=== PATIENT | male | born 1970 | race Caucasian/White ===

== ENCOUNTER 2019-10-31 20:52 | Emergency (ER) | payer BC, SELFPAY ==
[2019-10-31 21:56] VITALS: BP 172/99; PULSE 97; RESP 18; TEMP 37.7; O2SAT 94; BMI 44.6
[2019-10-31 23:54] LABS: Influenza A by IFA Positive (Negative)
[2019-10-31 23:55] LABS: Influenza B by IFA Negative (Negative)
--- NOTE | 2019-11-01 00:23 | W.ED.URI ---
HPI - URI/Sore Throat General: Chief Complaint: Upper Respiratory Infection Stated Complaint: flu like symptoms Time Seen by Provider: 11/01/19 00:16 Source: patient Mode of arrival: ambulatory Limitations: no limitations History of Present Illness: HPI Narrative: flu symptoms since yesterday Associated symptoms: Reports fever(s) Review of Systems General: Reports: 10 or more systems reviewed and unremarkable except in HPI and below Const: Reports: fever and body aches Resp: Reports: productive cough PFSH ED PFSH: Social History Smoking and tobacco status: never smoked Physical Exam Const: COMMON NORMALS: no apparent distress and oriented x3 GENERAL APPEARANCE: cooperative HENMT: COMMON NORMALS: normocephalic, external ears normal, EAC's normal, TM's normal bilaterally and external nose normal HEAD & SCALP: normal to inspection and normocephalic FACE & SINUS: normal facial exam NOSE: external nose normal GENERAL EAR: hearing not grossly impaired EXTERNAL EAR: Yes external ears normal EXTERNAL AUDITORY CANAL: EAC's normal TYMPANIC MEMBRANE: TM's normal bilaterally MOUTH: oral and palatal mucosa normal THROAT: posterior oropharynx abnormal erythema Eye: COMMON NORMALS: PERRL and EOMs intact bilaterally PUPIL: Yes PERRL Neck/C-Spine: COMMON NORMALS: full ROM and no lymphadenopathy Lymph: LYMPHATIC: no lymphedema noted Chest: COMMONS NORMALS: inspection of chest normal and palpation of chest normal Resp: COMMON NORMALS: normal respiratory effort and clear to auscultation bilaterally AUSCULTATION: clear to auscultation bilaterally Cardio: COMMON NORMALS: regular rate and regular rhythm RATE: regular rate RHYTHM: regular rhythm GI: COMMON NORMALS: normal to inspection, nondistended, normoactive bowel sounds and non-tender : COMMON NORMALS: Yes no CVA tenderness BLADDER/KIDNEY EXAM: Yes no CVA tenderness Back/Pelvis: COMMON NORMALS: no CVA tenderness and thoracic and lumbar spine normal to inspection Extremity: COMMON NORMALS: normal to inspection GENERAL: No edema Neuro: COMMON NORMALS: oriented x3, moves all extremities and no focal motor deficits Psych: COMMON NORMALS: mental status grossly normal and cooperative Skin: COMMON NORMALS: no rashes or lesions noted GENERAL SKIN EXAM: no rashes or lesions noted Course Vital Signs: Vital signs: Vital Signs Temperature 100 F H 10/31/19 21:56 Pulse Rate 97 10/31/19 21:56 Respiratory Rate 18 10/31/19 21:56 Blood Pressure 172/99 10/31/19 21:56 Pulse Oximetry 94 10/31/19 21:56 MDM - URI/Sore Throat MDM Narrative: Medical decision making narrative: Patient comes in with fever and cough since yesterday. Patient appears unwell. Patient appears in no acute distress. Posterior pharynx is erythematous, nasal mucosal swelling and drainage, lungs are clear to auscultation. Vital signs are normal except for some mild elevation in blood pressure at 172/99 and a temperature of 100. Differential diagnosis includes viral syndrome, upper respiratory infection, influenza. Influenza was positive for type A. Encourage fluids rest and medications as directed. Patient reports understanding. Lab Data: Labs: Lab Results 10/31/19 Range/Units 23:33 Influenza Type A A g Positive H (Negative) POC Influenza B Ag Negative (Negative) Discharge Plan Discharge Patient Disposition: Home, Self-Care Clinical Impression: Influenza Condition: Stable Prescriptions: New oseltamivir 75 mg capsule 75 mg PO BID 5 Days Qty: 10 RF: 0 No Action metoprolol barlow-hydrochlorothiaz 100-12.5 mg Tablet Extended Release 24 Hr 1 tab PO DAILY RF: 0 Discharge Orders: Discharge Order (Routine); Ordered 11/01/19 Ordered By: Mark Figueroa Referrals: Tere Ray MD [Family Provider] - Discharge Diet: Usual diet Discharge Activity: Increase activity as tolerated Patient Instructions: Influenza (ED) Activity Restrictions/Additional Instructions: Drink plenty of fluids Acetaminophen and ibuprofen for pain and fever Medications as directed Follow-up with primary care in one week as needed Stand Alone Forms: Work/School Release Coding 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
[2019-11-01] MEDS: oseltamivir phosphate 75 mg Capsule PO (00:34)
--- NOTE | 2019-11-01 00:38 | W.ED.URI ---
HPI - URI/Sore Throat General: Chief Complaint: Upper Respiratory Infection Stated Complaint: flu like symptoms Time Seen by Provider: 11/01/19 00:16 Source: patient Mode of arrival: ambulatory Limitations: no limitations History of Present Illness: HPI Narrative: Patient comes in today with complaints of cough and congestion and fever starting yesterday. Patient appears unwell. Patient appears in no pain. MD elicited complaint: fever and cough Associated symptoms: Reports fever(s) Review of Systems General: Reports: 10 or more systems reviewed and unremarkable except in HPI and below Const: Reports: fever Resp: Reports: non-productive cough PFSH ED PFSH: Social History Smoking and tobacco status: never smoked Physical Exam Const: COMMON NORMALS: no apparent distress and oriented x3 GENERAL APPEARANCE: cooperative HENMT: COMMON NORMALS: normocephalic, external ears normal, EAC's normal, TM's normal bilaterally and external nose normal HEAD & SCALP: normal to inspection and normocephalic FACE & SINUS: normal facial exam NOSE: external nose normal GENERAL EAR: hearing not grossly impaired EXTERNAL EAR: Yes external ears normal EXTERNAL AUDITORY CANAL: EAC's normal TYMPANIC MEMBRANE: TM's normal bilaterally MOUTH: oral and palatal mucosa normal THROAT: posterior oropharynx abnormal erythema Eye: COMMON NORMALS: PERRL and EOMs intact bilaterally PUPIL: Yes PERRL Neck/C-Spine: COMMON NORMALS: full ROM and no lymphadenopathy Lymph: LYMPHATIC: no lymphedema noted Chest: COMMONS NORMALS: inspection of chest normal and palpation of chest normal Resp: COMMON NORMALS: normal respiratory effort and clear to auscultation bilaterally AUSCULTATION: clear to auscultation bilaterally Cardio: COMMON NORMALS: regular rate and regular rhythm RATE: regular rate RHYTHM: regular rhythm GI: COMMON NORMALS: normal to inspection, nondistended, normoactive bowel sounds and non-tender : COMMON NORMALS: Yes no CVA tenderness BLADDER/KIDNEY EXAM: Yes no CVA tenderness Back/Pelvis: COMMON NORMALS: no CVA tenderness and thoracic and lumbar spine normal to inspection Extremity: COMMON NORMALS: normal to inspection GENERAL: No edema Neuro: COMMON NORMALS: oriented x3, moves all extremities and no focal motor deficits Psych: COMMON NORMALS: mental status grossly normal and cooperative Skin: COMMON NORMALS: no rashes or lesions noted GENERAL SKIN EXAM: no rashes or lesions noted Course Vital Signs: Vital signs: Vital Signs Temperature 100 F H 10/31/19 21:56 Pulse Rate 97 10/31/19 21:56 Respiratory Rate 18 10/31/19 21:56 Blood Pressure 172/99 10/31/19 21:56 Pulse Oximetry 94 10/31/19 21:56 MDM - URI/Sore Throat MDM Narrative: Medical decision making narrative: Patient comes in today for illness since yesterday. Patient unwell. Exam notes respirations are even lungs are clear to auscultation. Posterior pharynx is erythematous. Skin is warm and dry. Differential diagnosis includes influenza, upper respiratory infection, viral syndrome. Flu test was positive for type A. Reviewed exam with patient with recommendations for treatment and follow-up. Patient reports understanding. Lab Data: Labs: Lab Results 10/31/19 Range/Units 23:33 Influenza Type A A g Positive H (Negative) POC Influenza B Ag Negative (Negative) Discharge Plan Discharge Patient Disposition: Home, Self-Care Clinical Impression: Influenza Condition: Stable Prescriptions: New oseltamivir 75 mg capsule 75 mg PO BID 5 Days Qty: 10 RF: 0 No Action metoprolol barlow-hydrochlorothiaz 100-12.5 mg Tablet Extended Release 24 Hr 1 tab PO DAILY RF: 0 Discharge Orders: Discharge Order (Routine); Ordered 11/01/19 Ordered By: Mark Figueroa Referrals: Tere Ray MD [Family Provider] - Discharge Diet: Usual diet Discharge Activity: Increase activity as tolerated Patient Instructions: Influenza (ED) Activity Restrictions/Additional Instructions: Drink plenty of fluids Acetaminophen and ibuprofen for pain and fever Medications as directed Follow-up with primary care in one week as needed Stand Alone Forms: Work/School Release Coding 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
[2019-11-01 00:46] VITALS: BP 173/103; PULSE 88; RESP 16; TEMP 37.4; O2SAT 96
== END 2019-11-01 00:55 | disposition home or self-care (01) ==
PROVIDERS: Emergency Medicine; Emergency Provider Nurse Practitioner Family; Family Provider Internal Medicine
DX: J11.1 Influenza due to unidentified influenza virus with other respiratory manifestations (principal)
CPT/HCPCS: 87804; 99281; 99283

== ENCOUNTER 2020-03-06 08:02 | Outpatient (CLI) | payer BC, SELFPAY ==
--- NOTE | 2020-03-06 08:38 | CT_ITS ---
WS: [id number] CT NECK TECHNIQUE: Contrast-enhanced CT of the neck with coronal and sagittal reformatted images. CLINICAL INFORMATION: BENIGN NEOPLASM OF AORTIC BODY AND OTHER COMPARISON: Multiple prior neck CTs February 9019, March 01, 2018, March 09, 2017, June 16, 2016, Mayobe 2014 DLP: 1997.[address] scans at [facility] use at least one of these dose optimization techniques: automat ed exposure control; mA and/or kV adjustment per patient size (includes targeted exams where dose is matched to clinical indication); or iterative reconstruction. FINDINGS: Comparison multiple prior CT scans. Again seen are multiple paragangliomas stable since the prior examination . 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 This is not significantly changed since the prior examination. This continues to involve the posterior lateral margin of the clivus and right occipital condyle unch anged. Associated involvement of the petrous portion right internal carotid unchanged. 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 This is anterior and lateral to the internal carotid ar juan and anterior to the jugular vein. Stable bilateral carotid body paragangliomas left greater than right. The right paraganglioma measure s 2.4 x 1.9 x 2.8 cm. Left paraganglioma measures 2.0 x 3.1 x 8.6 CM. Additional enhancing lesion in the left thyroid bed measuring 2.4 x 2.0 x 3.7 CM. This is stable. Sta ble fatty atrophy involving the right lateral aspect of the tongue with prolapse into the right xiao culae is unchanged. Normal epiglottis. Supraglottic airway remains patent. Normal glottis. Subglottic airway remains patent. Suspected paralysis of the right true vocal cord with ballooning of the right piriform sinus is unchanged. Small nodules and opacities in the partially visualized lung baker appear similar. Mild spondylitic changes cervical spine with reversal of the normal cervical lordosis. CT/CT neck w con* [id number] IMPRESSION: 1. No significant changes since 2. 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 3. Stable enhancing bilateral CAROTID BODY PARAGANGLIOMAS left greater than ri ght unchanged. 4. 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 5. Stable enhancing lesion involving the left thyroid bed consistent with bubba tional paraganglioma unchanged. 6. Stable fatty atrophy consistent with denervation involving the right aspect of the tongue 7. 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 8. Bilateral partially visualized pulmonary parenchymal opacities and small no dules in the upper lung baker appear similar. This can be followed up with [facility] CT.
[2020-03-06] MEDS: iohexol 300 mg/mL 100 mL Btl IV (08:59)
== END 2020-03-06 08:03 | disposition home or self-care (01) ==
LOC: RADWPI 08:05
PROVIDERS: Family Provider Internal Medicine; PCP Internal Medicine; Visit Provider Specialist
DX: D35.6 Benign neoplasm of aortic body and other paraganglia (principal); D49.89 Neoplasm of unspecified behavior of other specified sites
CPT/HCPCS: 70491; Q9967

== ENCOUNTER 2020-03-12 12:29 | Outpatient (CLI) | payer BC, SELFPAY ==
--- NOTE | 2020-03-12 12:36 | CT_ITS ---
WS: [id number] CT CHEST TECHNIQUE: Contrast enhanced CT of the chest with coronal and sagittal reformatted images. CLINICAL INFORMATION: BENIGN NEOPLASM OF AORTIC BODY OTHER PARAGANG COMPARISON: CT chest 1 05/2013 DLP: 946.[address] scans at [facility] use at least one of these dose optimization techniques: automat ed exposure control; mA and/or kV adjustment per patient size (includes targeted exams where dose is matched to clinical indication); or iterative reconstruction. FINDINGS: Again seen are multiple noncalcified pulmonary nodules in both lungs similar in appearance to 2013. A few new nodules since the prior examination. Largest measure 6 mm. Differential considerations are unchanged and include chronic infectious or inflammatory etiologies i ncluding fungal. Noncalcified granulomatous disease and less likely metastatic disease considering th e relative stability since 2013 No mediastinal or hilar lymphadenopathy. Adrenal glands are normal. Cholelithiasis. Low-attenuation l esion in the right hepatic lobe anteriorly measuring 2.1 CCM. This likely represents hepatic cyst. A few additional smaller presumed hepatic cyst in left hepatic lobe. Adrenal glands are normal. CT/CT chest w con* [id number] IMPRESSION: 1. Again seen are multiple subcentimeter noncalcified nodules in both lungs sl ightly progressed compared to 2013. Largest nodules measure 5 to 6 mm. Recommen d 6 month follow-up. 2. Findings are nonspecific and differential considerations include noncalcifi ed granulomatous disease, infectious or inflammatory etiologies including indol ent or less likely metastatic disease. 3. No mediastinal or hilar lymphadenopathy. 4. A few hepatic cysts. 5. Cholelithiasis. This could be further evaluated with ultrasound.
[2020-03-12] MEDS: iohexol 300 mg/mL 100 mL Btl IV (13:51)
== END 2020-03-12 12:30 | disposition home or self-care (01) ==
LOC: RAD 12:31
PROVIDERS: PCP Internal Medicine; Visit Provider Radiology Radiation Oncology
DX: D35.6 Benign neoplasm of aortic body and other paraganglia (principal); R91.8 Other nonspecific abnormal finding of lung field; K76.89 Other specified diseases of liver; K80.20 Calculus of gallbladder without cholecystitis without obstruction
CPT/HCPCS: 71260

== ENCOUNTER 2020-04-09 07:41 | Outpatient (CLI) | payer BC, SELFPAY ==
--- NOTE | 2020-04-09 08:00 | FL_ITS ---
WS: [id number] MODIFIED BARIUM SWALLOW TECHNIQUE: Modified barium swallow with speech therapy using multiple consistencies. FLUOROSCOPY TIME: 3.5 minutes. CLINICAL INFORMATION: Dysphagia COMPARISON: None. FINDINGS: Multiple consistencies utilized. No evidence of gayla aspiration or penetration. Pooling in the xiao cula and piriform sinuses with stasis. Mild esophageal dysmotility visualized. No difficulties with b arium tablet. FL/FL barium swallow modifd [id number] IMPRESSION: 1. No gayla aspiration or penetration. 2. Pooling in the vallecula and piriform sinuses with stasis. 3. Mild esophageal dysmotility.
== END 2020-04-09 07:42 | disposition home or self-care (01) ==
PROVIDERS: PCP Internal Medicine; Visit Provider Internal Medicine Critical Care Medicine
DX: R91.1 Solitary pulmonary nodule (principal); R13.10 Dysphagia, unspecified
CPT/HCPCS: 74230; 92611